=== PATIENT | male | born 1935 | race Caucasian/White ===

== ENCOUNTER 2016-12-17 15:27 | Emergency (ER) | payer MEDICARE ==
[~2016-12-17] VITALS: Ht 170.2 cm; Wt 75.0 kg
[2016-12-17 15:33] VITALS: BP 132/62; PULSE 56; RESP 20; TEMP 98.3; O2SAT 97
[2016-12-17] MEDS ORDERED: ATEN25TA PO (15:52)
[2016-12-17] MEDS ORDERED: LEVO50TA4 PO (15:52)
[2016-12-17] MEDS ORDERED: LIPI10TA PO (15:52)
[2016-12-17] MEDS ORDERED: OMEP20TA PO (15:52)
[2016-12-17 15:53] VITALS: BP_SYST 109; BP_SYST 120; BP_SYST 131; BP_DIAS 58; BP_DIAS 61; BP_DIAS 65; RESP 16
[2016-12-17 16:06] VITALS: O2SAT 100
--- NOTE | 2016-12-17 16:13 | PD ---
HPI Chief Complaint: General Weakness Time Seen by Provider: 16:03 Travel History International Travel<30 days: No Contact w/Intl Traveler<30days: No Traveled to known affect area: No History of Present Illness HPI This is an 81-year-old male presents emergency department for evaluation of weakness generalized in the upper extremities and back. Patient states B go on and off for the past few weeks but got an episode today which was severe. He states he was lasting longer than his previous episodes. He seen his primary care physician and told he probably had vertigo but with this episode that lasted longer today he wanted to come in and be seen. He had an EKG done his providers office which was negative by his report. Patient describes episodes as when he is bending over and goes from a bent over to a upright position he has onset of some vertiginous symptoms and some generalized weakness. States usually only last for a few minutes. He is on beta blockers. Denies any focalized weakness denies any visual deficits denies any tremors. PFSH Past Medical History High Cholesterol: Yes Diminished Hearing: No GERD: Yes Hypertension: Yes Thyroid Disease: Yes Tetanus Vaccination: > 5 Years Influenza Vaccination: Yes Past Surgical History Tonsillectomy: Yes Other Surgery: Yes (CYST REMOVAL) Social History Alcohol Use: Yes (RARE) Tobacco Use: No Substance Use: No Allergies-Medications (Allergen,Severity, Reaction): Coded Allergies: No Known Allergies (Unverified , 12/17/16) Reported Meds & Prescriptions Reported Meds & Active Scripts Active Meclizine (Meclizine HCl) 25 Mg Tab 25 Mg PO TID PRN Reported Omeprazole 20 Mg Tab 20 Mg PO DAILY Lipitor (Atorvastatin Calcium) 10 Mg Tab 5 Mg PO HS Levothyroxine (Levothyroxine Sodium) 50 Mcg Tab 50 Mcg PO DAILY Atenolol 25 Mg Tab 25 Mg PO DAILY Review of Systems Except as stated in HPI: all other systems reviewed are Neg Physical Exam Narrative GENERAL: Well-developed well-nourished 81-year-old male who appears younger than stated age. SKIN: Focused skin assessment warm/dry. HEAD: Atraumatic. Normocephalic. EYES: Pupils equal and round. No scleral icterus. No injection or drainage. ENT: No nasal bleeding or discharge. Mucous membranes pink and moist. TMs clear bilaterally, oropharynx clear moist. NECK: Trachea midline. No JVD. CARDIOVASCULAR: Regular rate and rhythm. No murmur appreciated. RESPIRATORY: No accessory muscle use. Clear to auscultation. Breath sounds equal bilaterally. GASTROINTESTINAL: Abdomen soft, non-tender, nondistended. Hepatic and splenic margins not palpable. MUSCULOSKELETAL: No obvious deformities. No clubbing. No cyanosis. No edema. NEUROLOGICAL: Awake and alert. Cranial nerves II through XII are grossly intact and nonfocal, 5 out of 5 strength in all 4 extremity's, finger-nose- finger testing and heel smith testing is negative. Speech is normal. PSYCHIATRIC: Appropriate mood and affect; insight and judgment normal. Data Data Last Documented VS Vital Signs Date Time Temp Pulse Resp B/P (MAP) Pulse Ox O2 Delivery O2 Flow Rate FiO2 12/17/16 18:02 12/17/16 17:35 66 16 98 Room Air 12/17/16 15:33 98.3 Orders Orders Electrocardiogram (12/17/16 16:03) Complete Blood Count With Diff (12/17/16 16:03) Comprehensive Metabolic Panel (12/17/16 16:03) Magnesium (Mg) (12/17/16 16:03) Ckmb (Isoenzyme) Profile (12/17/16 16:03) Troponin I (12/17/16 16:03) Act Partial Throm Time (Ptt) (12/17/16 16:03) Prothrombin Time / Inr (Pt) (12/17/16 16:03) Urinalysis - C+S If Indicated (12/17/16 16:03) Chest, Single Ap (12/17/16 16:03) Ct Brain W/O Iv Contrast(Rout) (12/17/16 16:03) Ecg Monitoring (12/17/16 16:03) Iv Access Insert/Monitor (12/17/16 16:03) Oximetry (12/17/16 16:03) Sodium Chloride 0.9% Flush (Ns Flush) (12/17/16 16:15) Labs Laboratory Tests Test 12/17/16 14:10 12/17/16 17:10 White Blood Count 6.5 TH/MM3 Red Blood Count 5.01 MIL/MM3 Hemoglobin 14.8 GM/DL Hematocrit 43.5 % Mean Corpuscular Volume 86.9 FL Mean Corpuscular Hemoglobin 29.6 PG Mean Corpuscular Hemoglobin Concent 34.1 % Red Cell Distribution Width 13.6 % Platelet Count 129 TH/MM3 Mean Platelet Volume 7.0 FL Neutrophils (%) (Auto) 64.7 % Lymphocytes (%) (Auto) 22.6 % Monocytes (%) (Auto) 6.5 % Eosinophils (%) (Auto) 4.9 % Basophils (%) (Auto) 1.3 % Neutrophils # (Auto) 4.2 TH/MM3 Lymphocytes # (Auto) 1.5 TH/MM3 Monocytes # (Auto) 0.4 TH/MM3 Eosinophils # (Auto) 0.3 TH/MM3 Basophils # (Auto) 0.1 TH/MM3 CBC Comment DIFF FINAL Differential Comment Prothrombin Time 11.5 SEC Prothromb Time International Ratio 1.0 RATIO Activated Partial Thromboplast Time 26.8 SEC Blood Urea Nitrogen 20 MG/DL Creatinine 1.20 MG/DL Random Glucose 112 MG/DL Total Protein 6.6 GM/DL Albumin 3.6 GM/DL Calcium Level 8.6 MG/DL Magnesium Level 2.3 MG/DL Alkaline Phosphatase 51 U/L Aspartate Amino Transf (AST/SGOT) 14 U/L Alanine Aminotransferase (ALT/SGPT) 20 U/L Total Bilirubin 0.9 MG/DL Sodium Level 140 MEQ/L Potassium Level 3.9 MEQ/L Chloride Level 107 MEQ/L Carbon Dioxide Level 23.1 MEQ/L Anion Gap 10 MEQ/L Estimat Glomerular Filtration Rate 58 ML/MIN Total Creatine Kinase 60 U/L Troponin I LESS THAN 0.02 NG/ML Urine Collection Type CLEAN CATCH Urine Color YELLOW Urine Turbidity CLEAR Urine pH 6.5 Urine Specific [place] 1.020 Urine Protein NEG mg/dL Urine Glucose (UA) NEG mg/dL Urine Ketones TRACE mg/dL Urine Occult Blood NEG Urine Nitrite NEG Urine Bilirubin NEG Urine Leukocyte Esterase NEG Urine RBC 0-3 /hpf Urine WBC 0-2 /hpf Urine Bacteria RARE /hpf Microscopic Urinalysis Comment CULT NOT INDICATED Urine Collection Time 1710 MDM Medical Decision Making Medical Screen Exam Complete: Yes Emergency Medical Condition: Yes Differential Diagnosis vertigo, presyncope, arrhythmia, anemia, orthostatic hypotension. Narrative Course Patient roomed in emergency department, appears well and in no distress, neurologically intact. Basic labs and workup ordered for vertigo versus presyncope. CAT scan of the head negative, EKG reassuring. Labs are also reassuring. Discussed with him the possibilities of vertigo also the possibility that he may be having some orthostatic hypotensive episodes. Recommended cutting his beta tootie and half for the next few days and also a trial of meclizine to see how he feels. Discussed that he should discussed these recommendations with his primary care physician to keep them in the loop. He verbalized understanding and agreement is willing for a trial as an outpatient. He stable for discharge. Diagnosis Primary Impression: Dizziness and giddiness Med/Other Pt SpecificInfo: Prescription(s) given Scripts Meclizine (Meclizine) 25 Mg Tab 25 MG PO TID Y for VERTIGO, #20 TAB 0 Refills Prov: Wing Doll MD 12/17/16 Disposition: 01 DISCHARGE HOME Condition: Stable Wing Doll MD Dec 17, 2016 16:12
[2016-12-17] MEDS ORDERED: SODIUM CHLORIDE 0.9% FLUSH 10 ML FLUSH IVF PRN (16:15)
[2016-12-17 16:25] LABS: AUTOMATED NEUTROPHIL # 4.2 TH/MM3 (1.8-7.7); BASOPHIL # 0.1 TH/MM3 (0-0.2); BASOPHIL % 1.3 % (0.0-2.0); EOSINOPHIL # 0.3 TH/MM3 (0-0.4); EOSINOPHIL % 4.9 % (0.0-4.0); HEMATOCRIT 43.5 % (39.0-51.0); HEMO FLAGS DIFF FINAL; LYMPH % 22.6 % (9.0-44.0); LYMPHOCYTE # 1.5 TH/MM3 (1.0-4.8); MEAN CELL VOLUME 86.9 FL (80.0-100.0); MEAN CORPUSCULAR HEMOGLOBIN 29.6 PG (27.0-34.0); MEAN CORPUSCULAR HGB CONC 34.1 % (32.0-36.0); MONO % 6.5 % (0.0-8.0); NEUT % 64.7 % (16.0-70.0); PLATELET COUNT 129 TH/MM3 (150-450); RED BLOOD COUNT 5.01 MIL/MM3 (4.50-5.90); RED CELL DISTRIBUTION WIDTH 13.6 % (11.6-17.2); WHITE BLOOD COUNT 6.5 TH/MM3 (4.0-11.0)
[2016-12-17 16:33] LABS: CHLORIDE 107 MEQ/L (98-107); POTASSIUM 3.9 MEQ/L (3.5-5.1); SODIUM (NA) 140 MEQ/L (136-145)
[2016-12-17 16:37] LABS: APTT (PATIENT) 26.8 SEC (24.3-30.1); PROTHROMBIN TIME - PATIENT 11.5 SEC (9.8-11.6)
[2016-12-17 16:38] LABS: ANION GAP 10 MEQ/L (5-15); BICARBONATE 23.1 MEQ/L (21.0-32.0); BLOOD UREA NITROGEN 20 MG/DL (7-18); MAGNESIUM 2.3 MG/DL (1.5-2.5)
[2016-12-17 16:41] LABS: ALT (GPT) 20 U/L (12-78); AST (GOT) 14 U/L (15-37); GLOMERULAR FILTRATION RATE 58 ML/MIN (>89)
--- NOTE | 2016-12-17 16:42 | RADRPT ---
EXAM DATE/TIME: 12/17/2016 16:13 [facility] COMPARISON: No previous studies available for comparison. INDICATIONS : Dizziness. RADIATION DOSE: 60.59 CTDIvol (mGy) MEDICAL HISTORY : Hypertension. SURGICAL HISTORY : None. ENCOUNTER: Initial ACUITY: 2 days PAIN SCALE: 0/10 LOCATION: cranial TECHNIQUE: Multiple contiguous axial images were obtained of the head. Using automated exposure control and adj ustment of the mA and/or kV according to patient size, radiation dose was kept as low as reasonably a chievable to obtain optimal diagnostic quality images. DICOM format image data is available electro nically for review and comparison. FINDINGS: CEREBRUM: The ventricles are normal for age. No evidence of midline shift, mass lesion, hemorrhage or acute in farction. No extra-axial fluid collections are seen. POSTERIOR FOSSA: The cerebellum and brainstem are intact. The 4th ventricle is midline. The cerebellopontine angle i s unremarkable. EXTRACRANIAL: The visualized portion of the orbits is intact. SKULL: The calvaria is intact. No evidence of skull fracture. CONCLUSION: Normal examination. Varinder Joel MD on December 17, 2016 at 16:39 Board Certified Radiologist. This report was verified electronically.
[2016-12-17 16:43] LABS: TOTAL BILIRUBIN ADULT 0.9 MG/DL (0.2-1.0)
[2016-12-17 16:44] LABS: ALKALINE PHOSPHATASE 51 U/L (45-117)
[2016-12-17 16:53] LABS: CREATINE KINASE 60 U/L (39-308)
--- NOTE | 2016-12-17 16:56 | RADRPT ---
EXAM DATE/TIME: 12/17/2016 16:20 [facility] COMPARISON: No previous studies available for comparison. INDICATIONS : Dizziness and palpitations. MEDICAL HISTORY : Hypertension. SURGICAL HISTORY : None. ENCOUNTER: Initial ACUITY: 1 day PAIN SCORE: 0/10 LOCATION: chest FINDINGS: A single view of the chest demonstrates the lungs to be symmetrically aerated without evidence of mas s, infiltrate or effusion. The cardiomediastinal contours are unremarkable. Osseous structures are intact. CONCLUSION: 1. No acute cardiopulmonary disease. Pedro Pablo Shah MD on December 17, 2016 at 16:54 Board Certified Radiologist. This report was verified electronically.
[2016-12-17 17:16] LABS: BLOOD, URINE NEG (NEG); GLUCOSE,URINE NEG (NEG); KETONE, URINE TRACE mg/dL (NEG); NITRITE,URINE NEG (NEG); PH, URINE 6.5 (5.0-8.5)
[2016-12-17 17:31] LABS: BACTERIA, URINE RARE /hpf; COMMENT (UR) CULT NOT INDICATED; COMMENT2 (UR) MUCOUS PRESENT; CULTURE IF INDICATED CULT NOT INDICATED; METHOD OF COLLECTION CLEAN CATCH; RBC, URINE 0-3 /hpf (0-3); URINE COLOR YELLOW (YELLW/STRAW); WBC, URINE 0-2 /hpf (0-5)
[2016-12-17 17:35] VITALS: BP 132/61; PULSE 66; RESP 16; O2SAT 98
[2016-12-17] MEDS ORDERED: MECL-62 PO (17:53)
--- NOTE | 2016-12-18 14:37 | EKG ---
Date Performed: 12/17/2016 Time Performed: 16:29:59 PTAGE: 81 years EKG: Sinus rhythm NORMAL ECG NO PREVIOUS TRACING DOCTOR: Cresencio Stockton Interpretating Date/Time 12/18/2016 14:35:25
== END 2016-12-17 18:07 | disposition home or self-care (01) ==
LOC: PHED 15:27
DX: R42 Dizziness and giddiness (principal); R53.1 Weakness; I10 Essential (primary) hypertension; E78.5 Hyperlipidemia, unspecified; K21.9 Gastro-esophageal reflux disease without esophagitis; E07.9 Disorder of thyroid, unspecified
CPT/HCPCS: 70450; 71010; 80053; 81001; 82550; 83735; 84484; 85025; 85610; 85730; 93005; 99285